=== PATIENT | female | born 1980 | race Caucasian/White ===

== ENCOUNTER → 2020-02-12 | Outpatient (CLI) | payer OTHER ==
--- NOTE | 2020-02-12 09:00 | Diagnostic Imaging Report ---
Thyroid ultrasound CPT code: 41483 History: Thyroid cancer Comparison: None Findings: History of thyroidectomy. No abnormal findings in the thyroidectomy bed. No lymphadenopathy. IMPRESSION: Status post thyroidectomy. No lymphadenopathy or mass in the thyroidectomy bed. Signed by: Lucrecia Baez MD on 02/12/2020 8:57 AM
--- NOTE | 2020-02-13 21:35 | Diagnostic Imaging Report ---
Thyroid Scan with Multiple Uptakes Reason for exam: 39 F with history of right thyroidectomy in 05/2018 and completion left thyroidectomy in 09/2018. Patient reports thyroid cancer. Had subsequent radioactive iodine treatment. Radiopharmaceutical: I-123 Saida 0.3 mCi Report: After oral administration of I-123 Saida, the 6-hour thyroid uptake of iodine is 0.2% (normal 4-14%) and the 24-hour uptake is 0% (normal 10-35%). Image of the thyroid was obtained in the anterior projection but shows no accumulation of tracer in the thyroid bed or adjacent cervical node stations. Impression: 1. No uptake of iodine and no thyroid tissue identified in the thyroid bed or neck. 2. This patient might benefit from a total body I-131 Saida scan as surveillance for thyroid cancer metastasis. The patient would need to stop levothyroxine for at least 3 weeks and document a TSH greater than 30 uIU/mL in order to proceed with scan. Alternative would be use of rhTSH (Thyrogen) rather than thyroid hormone withdrawal. Signed by: Dr. Melina Peña M.D. on 02/13/2020 9:32 PM
== END ==
LOC: US 06:53
PROVIDERS: ATTEND Internal Medicine
DX: C73 Malignant neoplasm of thyroid gland (principal)
CPT/HCPCS: 76536; 78014; A9516